=== PATIENT | female | born 1940 ===

== ENCOUNTER → 2017-06-08 | Outpatient (REF) | payer MEDICARE ==
[2017-06-08 18:35] LABS: INR 2.33
== END ==
LOC: M LABDRAWC 16:27
PROVIDERS: ATTEND Internal Medicine Cardiovascular Disease
DX: I48.91 Unspecified atrial fibrillation (principal)

== ENCOUNTER → 2018-04-04 | Outpatient (REF) | payer MEDICARE ==
[2018-04-04 17:26] LABS: INR 1.39; PROTHROMBIN TIME 17.3 SECONDS (12.1-14.4)
== END ==
LOC: M LABDRAWC 16:45
DX: I48.91 Unspecified atrial fibrillation (principal)
CPT/HCPCS: 85610

== ENCOUNTER → 2020-06-04 | Outpatient (REF) | payer MEDICARE ==
[2020-06-04 17:52] LABS: INR 2.13; PROTHROMBIN TIME 24.3 SECONDS (11.8-14.0)
== END ==
LOC: M LABDRAWC 10:05
PROVIDERS: ATTEND Internal Medicine Cardiovascular Disease
DX: I48.0 Paroxysmal atrial fibrillation (principal); Z79.01 Long term (current) use of anticoagulants